=== PATIENT | male | born 1970 | race Caucasian/White ===

== ENCOUNTER 2018-07-11 08:47 | Day surgery (SDC) | payer MEDICARE, OTHER ==
[2018-07-11] MEDS ORDERED: Lactated Ringers 1,000 ML IV SCH (09:45)
[2018-07-11] MEDS ORDERED: Propofol 200 MG/20 ML SDV ONE (10:29)
[2018-07-11] MEDS ORDERED: fentaNYL 100 MCG/2 ML SDV ONE (10:29)
[2018-07-11] MEDS ORDERED: Midazolam 1 MG/ML 2 ML SDV ONE (10:30)
[2018-07-11] MEDS ORDERED: Glycopyrrolate 0.2 MG/ML 2 ML SDV ONE (10:54)
--- NOTE | 2018-07-11 13:00 | OR ---
DATE OF PROCEDURE: 07/11/2018 PREOPERATIVE DIAGNOSES: 1. Lower abdominal pain. 2. Blood in stool. 3. History of polyps. POSTOPERATIVE DIAGNOSES: 1. Lower abdominal pain. 2. Blood in stool. 3. History of polyps. 4. Unremarkable colonoscopy. PROCEDURE: Colonoscopy to the cecum. SURGEON: Wilbert Manzanares MD ANESTHESIA: IV anesthesia with monitored anesthesia care. INDICATION: This 47-year-old white male is referred for a colonoscopy because of blood in the stool and lower abdominal pain. He had a colonoscopy in the remote past in [place] where apparently a polyp was found. I counseled him for the procedure, including risks and alternatives, and he gave his informed consent to proceed. DESCRIPTION OF PROCEDURE: The patient was placed in the left lateral decubitus position. IV anesthesia was administered by the Anesthesia Service. Time-out was held. A rectal exam was performed, which was unremarkable. The flexible video Olympus colonoscope was introduced through his anus, up his rectum, out his colon, all the way to the cecum. Once the cecum was reached, the scope was slowly withdrawn, examining the mucosa throughout. No mucosal abnormalities were noted. The scope was retroflexed in the rectum with the distal rectum appearing unremarkable. The scope was straightened and removed. He tolerated the procedure well. Wilbert Manzanares MD /[id number]
== END 2018-07-11 12:00 | disposition home or self-care (01) ==
LOC: JP.SDS 08:47
PROVIDERS: ATTEND Surgery
DX: K92.1 Melena (principal); R10.30 Lower abdominal pain, unspecified; Z86.010 Personal history of colon polyps
CPT/HCPCS: 45378; J2250; J2704; J3010; J3490; J7120

== ENCOUNTER 2020-01-15 09:05 | Emergency (ER) | payer OTHER ==
--- NOTE | 2020-01-15 09:46 | EDM.PDOC ---
ED HPI GENERAL MEDICAL PROBLEM - General Chief Complaint: Cardiovascular Problem Stated Complaint: CHEST PAIN, HBP Time Seen by Provider: 01/15/20 09:45 Source of Information: Reports: Patient, Old Records, RN History Limitations: Reports: No Limitations - History of Present Illness INITIAL COMMENTS - FREE TEXT/NARRATIVE: 49 yo male presents with some sternal tightness not worse with exertion. Is trying to quit smoking. Was started on Norvasc 5 mg less than a week ago. No calf pain or LE edema. No hx of CAD. Has an outpatient ECHO pending as ordered through the clinic. 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: Other (see below) (Norvasc 5 mg qd) - Related Data Allergies Allergy/AdvReac Type Severity Reaction Status Date / Time codeine AdvReac Nausea Verified 01/15/20 09:18 tramadol HCl [From Ultram] AdvReac Headache Verified 01/15/20 09:18 Home Meds: Home Meds amLODIPine Besylate [Amlodipine Besylate] 1 tab PO DAILY 01/15/20 [History] Past Medical History Cardiovascular History: Reports: Hypertension Gastrointestinal History: Reports: Colon Polyp Musculoskeletal History: Reports: Other (See Below) Other Musculoskeletal History: complex regional pain sysndrome in left ankle resolved Neurological History: Reports: None, Other (See Below) Other Neuro History: low back pain - Infectious Disease History Infectious Disease History: Reports: Chicken Pox - Past Surgical History GI Surgical History: Reports: Colonoscopy Neurological Surgical History: Reports: None Musculoskeletal Surgical History: Reports: None Social & Family History - Family History Family Medical History: Noncontributory - Tobacco Use Smoking Status *Q: Current Every Day Smoker Years of Tobacco use: 20 Packs/Tins Daily: 1 Used Tobacco, but Quit: No - Caffeine Use Caffeine Use: Reports: Coffee - Alcohol Use Number of Drinks Per Day: 4 Date of Last Drink: 01/11/20 Time of Last Drink: 22:00 - Recreational Drug Use Recreational Drug Use: Yes Recreational Drug Type: Reports: Marijuana/Hashish Recreational Drug Use Frequency: Daily ED ROS GENERAL - Review of Systems Review Of Systems: See Below Constitutional: Reports: No Symptoms HEENT: Reports: No Symptoms Respiratory: Reports: No Symptoms Cardiovascular: Reports: Other (sternal tightness) Endocrine: Reports: No Symptoms GI/Abdominal: Reports: No Symptoms : Reports: No Symptoms Musculoskeletal: Reports: No Symptoms Skin: Reports: No Symptoms Neurological: Reports: No Symptoms ED EXAM, GENERAL - Physical Exam Exam: See Below Exam Limited By: No Limitations General Appearance: Alert, WD/WN, No Apparent Distress Eye Exam: Bilateral Eye: Normal Inspection Ears: Normal External Exam, Normal Canal, Hearing Grossly Normal Ear Exam: Bilateral Ear: Auricle Normal, Canal Normal Nose: Normal Inspection, No Blood Throat/Mouth: Normal Inspection, Normal Lips, Normal Oropharynx, Normal Voice, No Airway Compromise Head: Atraumatic, Normocephalic Neck: Normal Inspection Respiratory/Chest: No Respiratory Distress, Lungs Clear, Normal Breath Sounds, No Accessory Muscle Use Cardiovascular: Regular Rate, Rhythm, No Edema GI/Abdominal: Normal Bowel Sounds, Soft, Non-Tender, No Distention Extremities: Normal Inspection, Normal Range of Motion, Non-Tender, No Pedal Edema. No: Pedal Edema, Leg Pain, Limited Range of Motion, Increased Warmth Neurological: Alert, Oriented, CN II-XII Intact, Normal Cognition, No Mo tor/Sensory Deficits Psychiatric: Normal Affect, Normal Mood Skin Exam: Warm, Dry, Intact, Normal Color, No Rash EKG INTERPRETATION EKG Date: 01/15/20 Time: 09:45 Rhythm: NSR Rate (Beats/Min): 51 [place]: Normal P-Wave: Present QRS: Normal ST-T: Normal QT: Normal Comparison: NA - No Prior EKG Course - Vital Signs Last Recorded V/S: Last Vital Signs Temp 35.3 C L 01/15/20 09:28 Pulse 61 01/15/20 10:14 Resp 16 01/15/20 10:14 BP 158/99 H 01/15/20 10:14 Pulse Ox 98 01/15/20 10:14 - Orders/Labs/Meds Orders: Active Orders 24 hr Category Date Time Status Cardiac Monitoring [RC] .As Directed Care 01/15/20 09:10 Active EKG Documentation Completion [RC] ASDIRECTED Care 01/15/20 09:10 Active EKG 12 Lead [EK] Routine Ther 01/15/20 09:09 Ordered Labs: Laboratory Tests 01/15/20 Range/Units 09:43 Sodium 143 (140-148) mmol/L Potassium 4.1 (3.6-5.2) mmol/L Chloride 106 (100-108) mmol/L Carbon Dioxide 31 (21-32) mmol/L Anion Gap 5.8 (5.0-14.0) mmol/L BUN 12 (7-18) mg/dL Creatinine 1.0 (0.8-1.3) mg/dL Est Cr Clr Drug Dosing 92.81 mL/min Estimated GFR (MDRD) > 60 (>60) Glucose 86 (74-106) mg/dL Calcium 8.7 (8.5-10.1) mg/dL Troponin I < 0.017 (0.000-0.056) ng/mL Meds: Medications Discontinued Medications Generic Name Dose Route Start Last Admin Trade Name Freq PRN Reason Stop Dose Admin Acetaminophen 1,000 mg 01/15/20 09:58 01/15/20 10:14 Tylenol Extra Strength PO 01/15/20 09:59 1,000 mg ONETIME ONE Administration Departure - Departure Time of Disposition: 10:29 Disposition: Home, Self-Care 01 Condition: Good Clinical Impression: Costochondritis Instructions: Costochondritis, [id number] Referrals: PCP,None [Primary Care Provider] - Forms: ED Department Discharge Additional Instructions: Take acetaminophen 1000 mg every 6 hrs as needed for pain relief. Continue your current BP med. Recheck in the clinic as previously directed. Sepsis Event Note (ED) - Evaluation Sepsis Screening Result: No Definite Risk - Focused Exam Vital Signs: Vital Signs Temp Pulse Resp BP Pulse Ox 01/15/20 10:14 61 16 158/99 H 98 01/15/20 09:28 35.3 C L 60 16 185/90 H 100 01/15/20 09:16 35.3 C L 60 16 185/90 H 100 - My Orders Last 24 Hours: My Active Orders 01/15/20 09:09 EKG 12 Lead [EK] Routine 01/15/20 09:10 Cardiac Monitoring [RC] .As Directed EKG Documentation Completion [RC] ASDIRECTED - Assessment/Plan Last 24 Hours: My Active Orders 01/15/20 09:09 EKG 12 Lead [EK] Routine 01/15/20 09:10 Cardiac Monitoring [RC] .As Directed EKG Documentation Completion [RC] ASDIRECTED
[2020-01-15] MEDS: Acetaminophen 500 MG Tab PO ONE (10:14)
== END 2020-01-15 10:40 | disposition home or self-care (01) ==
LOC: JP.ED 09:05
DX: M94.0 Chondrocostal junction syndrome [Tietze] (principal); I10 Essential (primary) hypertension; F17.210 Nicotine dependence, cigarettes, uncomplicated; Z88.5 Allergy status to narcotic agent; Z79.899 Other long term (current) drug therapy
CPT/HCPCS: 36415; 80048; 84484; 93005; 99285; A9270; 93010

== ENCOUNTER 2020-01-24 09:43 | Emergency (ER) | payer OTHER ==
[2020-01-24] MEDS ORDERED: Nitroglycerin 0.4 MG Tab.SL SL ONE (09:56)
[2020-01-24] MEDS ORDERED: Aspirin 81 MG Tab.Chew PO ONE (09:56)
--- NOTE | 2020-01-24 09:57 | EDM.PDOC ---
ED HPI GENERAL MEDICAL PROBLEM - General Chief Complaint: Chest Pain Stated Complaint: CHEST PAINS, FAINT FEELING, HIGH BP Time Seen by Provider: 01/24/20 09:57 Source of Information: Reports: Patient History Limitations: Reports: No Limitations - History of Present Illness INITIAL COMMENTS - FREE TEXT/NARRATIVE: pt has severe chest pain and his bp is elevated. He has been having chest pain off and on. Onset: Today, Sudden, Other (pt was in the shower and he developed the chest pain. ) Duration: Hour(s): Location: Reports: Chest, Other (numbness in the left arm. ) Associated Symptoms: Reports: Chest Pain, Other ( tingling in the left arm. ) Chest Pain Score (Numeric/FACES): 9 - Related Data Allergies Allergy/AdvReac Type Severity Reaction Status Date / Time codeine AdvReac Nausea Verified 01/15/20 09:18 tramadol HCl [From Ultram] AdvReac Headache Verified 01/15/20 09:18 Home Meds: Home Meds amLODIPine Besylate [Amlodipine Besylate] 5 mg PO DAILY 01/15/20 [History] Past Medical History Cardiovascular History: Reports: Hypertension Gastrointestinal History: Reports: Colon Polyp Musculoskeletal History: Reports: Other (See Below) Other Musculoskeletal History: complex regional pain sysndrome in left ankle resolved Neurological History: Reports: None, Other (See Below) Other Neuro History: low back pain - Infectious Disease History Infectious Disease History: Reports: Chicken Pox - Past Surgical History GI Surgical History: Reports: Colonoscopy Neurological Surgical History: Reports: None Musculoskeletal Surgical History: Reports: None Social & Family History - Family History Family Medical History: Noncontributory - Caffeine Use Caffeine Use: Reports: Coffee ED ROS GENERAL - Review of Systems Review Of Systems: See Below Constitutional: Reports: No Symptoms HEENT: Reports: No Symptoms Respiratory: Reports: Shortness of Breath Cardiovascular: Reports: Chest Pain Endocrine: Reports: No Symptoms GI/Abdominal: Reports: Nausea : Reports: No Symptoms Musculoskeletal: Reports: No Symptoms Skin: Reports: No Symptoms Neurological: Reports: Dizziness Psychiatric: Reports: No Symptoms ED EXAM, GENERAL - Physical Exam Exam: See Below Free Text/Narrative:: pt arrived wih chest pain and his bp was quite high. He was just started on bp meds 2 weeks ago. He has not felt like his heart is rapid. He was not sweaty when he had the chest pain. Exam Limited By: No Limitations General Appearance: Alert, Anxious, Moderate Distress, Other ( color remains good. pupils are equal and reactive. ) Ears: Normal TMs Nose: Normal Inspection Throat/Mouth: Normal Inspection Head: Atraumatic Neck: Normal Inspection Respiratory/Chest: No Respiratory Distress, Other (pt had a normal chest xray. ) Cardiovascular: Regular Rate, Rhythm, Other ( No acute changes on the ekg. ) GI/Abdominal: Soft, Non-Tender (Male) Exam: Deferred Rectal (Males) Exam: Deferred Back Exam: Normal Inspection Extremities: Normal Inspection Neurological: Alert, Oriented, Normal Cognition Psychiatric: Anxious, Other (pt feels like his work is causing alot of stress. ) Course - Vital Signs Last Recorded V/S: Last Vital Signs Temp 36 C L 01/24/20 09:55 Pulse 58 L 01/24/20 11:14 Resp 7 L 01/24/20 11:14 BP 165/113 H 01/24/20 12:33 Pulse Ox 96 01/24/20 11:14 - Orders/Labs/Meds Orders: Active Orders 24 hr Category Date Time Status EKG Documentation Completion [RC] ASDIRECTED Care 01/24/20 09:55 Active EKG 12 Lead [EK] Routine Ther 01/24/20 09:55 Ordered Labs: Laboratory Tests 01/24/20 01/24/20 01/24/20 Range/Units 09:59 09:59 09:59 WBC 6.9 (4.5-11.0) K/uL RBC 5.25 (4.30-5.90) M/uL Hgb 16.0 H (12.0-15.0) g/dL Hct 46.6 (40.0-54.0) % MCV 89 (80-98) fL MCH 31 (27-31) pg MCHC 34 (32-36) % Plt Count 415 H (150-400) K/uL Neut % (Auto) 47 (36-66) % Lymph % (Auto) 38 (24-44) % Cooper % (Auto) 11 H (2-6) % Eos % (Auto) 2 (2-4) % Baso % (Auto) 2 H (0-1) % Sodium 141 (140-148) mmol/L Potassium 4.1 (3.6-5.2) mmol/L Chloride 103 (100-108) mmol/L Carbon Dioxide 25 (21-32) mmol/L Anion Gap 13.3 (5.0-14.0) mmol/L BUN 11 (7-18) mg/dL Creatinine 1.0 (0.8-1.3) mg/dL Est Cr Clr Drug Dosing 91.32 mL/min Estimated GFR (MDRD) > 60 (>60) Glucose 86 (74-106) mg/dL Calcium 9.0 (8.5-10.1) mg/dL Total Bilirubin 0.3 (0.2-1.0) mg/dL AST 21 (15-37) U/L ALT 29 (12-78) U/L Alkaline Phosphatase 87 (46-116) U/L Troponin I < 0.017 (0.000-0.056) ng/mL Total Protein 7.5 (6.4-8.2) g/dL Albumin 4.1 (3.4-5.0) g/dL Globulin 3.4 (2.3-3.5) g/dL Albumin/Globulin Ratio 1.2 (1.2-2.2) Urine Color (YELLOW) Urine Appearance (CLEAR) Urine pH (5.0-8.0) Ur Specific [place] (1.008-1.030) Urine Protein (NEGATIVE) mg/dL Urine Glucose (UA) (NEGATIVE) mg/dL Urine Ketones (NEGATIVE) mg/dL Urine Occult Blood (NEGATIVE) Urine Nitrite (NEGATIVE) Urine Bilirubin (NEGATIVE) Urine Urobilinogen (0.2-1.0) EU/dL Ur Leukocyte Esterase (NEGATIVE) Urine RBC (0-5) Urine WBC (0-5) Ur Epithelial Cells Amorphous Sediment Urine Bacteria Urine Mucus 01/24/20 01/24/20 Range/Units 10:34 12:03 WBC (4.5-11.0) K/uL RBC (4.30-5.90) M/uL Hgb (12.0-15.0) g/dL Hct (40.0-54.0) % MCV (80-98) fL MCH (27-31) pg MCHC (32-36) % Plt Count (150-400) K/uL Neut % (Auto) (36-66) % Lymph % (Auto) (24-44) % Cooper % (Auto) (2-6) % Eos % (Auto) (2-4) % Baso % (Auto) (0-1) % Sodium (140-148) mmol/L Potassium (3.6-5.2) mmol/L Chloride (100-108) mmol/L Carbon Dioxide (21-32) mmol/L Anion Gap (5.0-14.0) mmol/L BUN (7-18) mg/dL Creatinine (0.8-1.3) mg/dL Est Cr Clr Drug Dosing mL/min Estimated GFR (MDRD) (>60) Glucose (74-106) mg/dL Calcium (8.5-10.1) mg/dL Total Bilirubin (0.2-1.0) mg/dL AST (15-37) U/L ALT (12-78) U/L Alkaline Phosphatase (46-116) U/L Troponin I < 0.017 (0.000-0.056) ng/mL Total Protein (6.4-8.2) g/dL Albumin (3.4-5.0) g/dL Globulin (2.3-3.5) g/dL Albumin/Globulin Ratio (1.2-2.2) Urine Color Yellow (YELLOW) Urine Appearance Clear (CLEAR) Urine pH 8.5 H (5.0-8.0) Ur Specific [place] 1.020 (1.008-1.030) Urine Protein Negative (NEGATIVE) mg/dL Urine Glucose (UA) Negative (NEGATIVE) mg/dL Urine Ketones Negative (NEGATIVE) mg/dL Urine Occult Blood Negative (NEGATIVE) Urine Nitrite Negative (NEGATIVE) Urine Bilirubin Negative (NEGATIVE) Urine Urobilinogen 0.2 (0.2-1.0) EU/dL Ur Leukocyte Esterase Negative (NEGATIVE) Urine RBC 0-5 (0-5) Urine WBC 0-5 (0-5) Ur Epithelial Cells Few Amorphous Sediment Not seen Urine Bacteria Few Urine Mucus Few Meds: Medications Discontinued Medications Generic Name Dose Route Start Last Admin Trade Name Freq PRN Reason Stop Dose Admin Amlodipine Besylate 5 mg 01/24/20 12:27 01/24/20 12:33 Norvasc PO 01/24/20 12:28 5 mg ONETIME ONE Administration Aspirin 324 mg 01/24/20 09:56 01/24/20 10:04 Aspirin PO 01/24/20 09:57 324 mg ONETIME ONE Administration Labetalol HCl 20 mg 01/24/20 10:04 01/24/20 10:55 Normodyne IVPUSH 01/24/20 10:05 10 units ONETIME ONE Administration Protocol Labetalol HCl 10 mg 01/24/20 10:30 01/24/20 10:24 Normodyne IVPUSH 01/24/20 10:31 10 mg ONETIME ONE Administration Protocol Lorazepam 0.5 mg 01/24/20 10:05 01/24/20 10:28 Ativan IVPUSH 01/24/20 10:06 0.5 mg ONETIME ONE Administration Nitroglycerin 0.4 mg 01/24/20 09:56 Nitrostat SL 01/24/20 09:57 ONETIME ONE - Re-Assessments/Exams Free Text/Narrative Re-Assessment/Exam: 01/24/20 12:36 ekg did not reveal acute chnges. He had a normal trop. He was given labaitol 20 mg iv and his bp did come down. He had normal lab work. His echo that was done a couple of days ago was normal. His ekg did not reveal acute changes. His first trop was normal and a second was obtained Departure - Departure Time of Disposition: 12:22 Disposition: Home, Self-Care 01 Condition: Fair Clinical Impression: Hypertension, Atypical chest pain Instructions: Hypertension, Adult, [id number] Referrals: Peng Lobo PA-C [Primary Care Provider] - Forms: ED Department Discharge Care Plan Goals: schedule exercise cardiolyte, Have cholestrol and triglcerides checked at the clinic if they have not been done. Have appt at the clinic with peng Woods in 4-5 days, increase amlodopine to 5 mg bid, Do not over check the bp . check it twice daily, exercise regul;jose, decrease salt intake. Sepsis Event Note (ED) - Evaluation Sepsis Screening Result: No Definite Risk - My Orders Last 24 Hours: My Active Orders 01/24/20 09:55 EKG Documentation Completion [RC] ASDIRECTED EKG 12 Lead [EK] Routine - Assessment/Plan Last 24 Hours: My Active Orders 01/24/20 09:55 EKG Documentation Completion [RC] ASDIRECTED EKG 12 Lead [EK] Routine
[2020-01-24] MEDS ORDERED: Labetalol 100 MG/20 ML MDV IVPUSH ONE (10:04)
[2020-01-24] MEDS ORDERED: LORazepam 2 MG/ML SDV IVPUSH ONE (10:05)
[2020-01-24] MEDS ORDERED: Labetalol 20 MG/4 ML Syringe IVPUSH ONE (10:30)
--- NOTE | 2020-01-24 10:53 | CR ---
CHEST: Portable 01/24/2020 at 1026 CLINICAL HISTORY:Chest pain COMPARISON:None FINDINGS: The heart size, pulmonary vascularity and hilar structures are normal. No infiltrate effusion or pneumothorax is seen. IMPRESSION: No acute cardiopulmonary process.
[2020-01-24] MEDS ORDERED: amLODIPine 5 MG Tab PO ONE (12:27)
== END 2020-01-24 12:54 | disposition home or self-care (01) ==
LOC: JP.ED 09:43
DX: I10 Essential (primary) hypertension (principal); Z88.5 Allergy status to narcotic agent; Z79.899 Other long term (current) drug therapy
CPT/HCPCS: 36415; 71045; 80053; 81001; 84484; 85025; 93005; 96374; 96375; 96376; 99285; A9270; J2060; J3490

== ENCOUNTER 2020-12-24 06:22 | Day surgery (SDC) | payer OTHER ==
[~2020-12-24 06:22] MED LIST: Acetaminophen 325 MG Tab PO ONE; Albuterol/Ipratropium 3.0-0.5 MG/3 ML Neb Soln NEB ONE; Dextrose 5%-Lactated Ringers 1,000 ML IV SCH
[2020-12-24] MEDS ORDERED: Acetaminophen 500 MG Tab PO ONE (07:04)
[2020-12-24] MEDS ORDERED: ceFAZolin 2 GM in Premix Bag 1 BAG IV ONE (07:30)
[2020-12-24] MEDS ORDERED: fentaNYL 250 MCG/5 ML SDV ONE (07:33)
[2020-12-24] MEDS ORDERED: Rocuronium 50 MG/5 ML Vial ONE (07:34)
[2020-12-24] MEDS ORDERED: Neostigmine Methylsulfate 1 MG/ML 5 ML Syringe ONE (07:34)
[2020-12-24] MEDS ORDERED: Glycopyrrolate 0.2 MG/ML 5 ML MDV ONE (07:34)
[2020-12-24] MEDS ORDERED: Propofol 200 MG/20 ML SDV ONE (07:34)
[2020-12-24] MEDS ORDERED: Dexamethasone 4 MG/ML SDV ONE (07:34)
[2020-12-24] MEDS ORDERED: Ondansetron 4 MG/2 ML SDV ONE (07:34)
[2020-12-24] MEDS ORDERED: Succinylcholine 200 MG/10 ML MDV ONE (07:34)
[2020-12-24 07:37] LABS: CORONAVIRUS COVID-19 NAA NEGATIVE (NEGATIVE)
[2020-12-24] MEDS ORDERED: Bupivacaine 0.5% 50 ML MDV ONE (07:37)
[2020-12-24] MEDS ORDERED: Bacitracin Oint 1 GM U/D Packet ONE (07:37)
[2020-12-24] MEDS ORDERED: Lidocaine 1% with EPINEPHrine 1:100,000 50 ML MDV ONE (07:38)
[2020-12-24] MEDS ORDERED: Ketorolac 30 MG/ML SDV ONE (09:27)
--- NOTE | 2020-12-27 10:39 | OR ---
DATE OF PROCEDURE: 12/24/2020 SURGEON: Óscar Mooney MD PREOPERATIVE DIAGNOSIS: Lipoma of right mid back. POSTOPERATIVE DIAGNOSIS: Submuscular lipoma, right mid back. OPERATIVE PROCEDURE: Excision of submuscular lipoma, right mid back ([id number]). ANESTHESIA: General. INSURANCE CLAIMS REPRESENTATIVE: Yolanda Mijares. LUCA. INDICATION FOR PROCEDURE: This is a 50-year-old male presenting with increasingly symptomatic large mass on his mid upper back on the right side. The plan is to proceed with an excision of this. By clinical exam, this is probably subfascial and general anesthetic will be planned. Potential risks of the procedure including bleeding, infection, possible recurrence of the lesion were gone over and the likelihood of needing a drain for a period of time after the procedure were likewise all gone over and the patient wishes to proceed. DETAILS OF PROCEDURE: The patient was taken to the operating room, placed in a supine position. After general endotracheal anesthesia was induced, he was converted to a prone position and the back prepped and draped. The area which the outline was marked. Once outlined, a transverse incision was made over the center of the mass and carried down through the skin and subcutaneous tissue, and through the muscular fascia. The mass still was not evident by initial visualization of the musculature. On further division of the musculature in line of its fibers, a 7 cm fairly well circumscribed lipoma was identified and using blunt dissection and electrocautery it was removed with a scant amount of attached muscle to it. The capsule and the lipoma appeared to be intact with removal and measured 7 cm. The wound was inspected, some bleeding points were cauterized. Lateral to the main incision, a 10-[place] round Maximilian-Fitzgerald drain was placed and sutured to skin with 4-0 Vicryl stitch. The muscular fascia was then approximated with 2-0 Vicryl stitch, subcutaneous tissue with some 3-0 Vicryl stitch, and the skin with kelin. Dressing was applied. The patient was taken to the recovery room in satisfactory condition. There were no evident complications. Physician studio assistant, Yolanda Mijares, played an essential role in assisting in this case, helping to position the patient, retract structures as needed, as well as suturing and cutting sutures when indicated. Her presence improved patient safety and decreased operative time. Óscar Mooney MD /[id number]
== END 2020-12-24 11:10 | disposition home or self-care (01) ==
LOC: JP.SDS 06:22
PROVIDERS: ATTEND Surgery
DX: D17.1 Benign lipomatous neoplasm of skin and subcutaneous tissue of trunk (principal); G89.4 Chronic pain syndrome; F17.210 Nicotine dependence, cigarettes, uncomplicated; G47.33 Obstructive sleep apnea (adult) (pediatric); R06.02 Shortness of breath; R42 Dizziness and giddiness; I10 Essential (primary) hypertension; Z01.812 Encounter for preprocedural laboratory examination; Z20.822 Contact with and (suspected) exposure to COVID-19; Z79.890 Hormone replacement therapy; Z88.8 Allergy status to other drugs, medicaments and biological substances; Z91.041 Radiographic dye allergy status
CPT/HCPCS: 0241U; 21933; 94640; A9270; J0330; J1100; J1885; J2405; J2704; J2710; J3010; J3490; J7121; 88304; J7620-GY